=== PATIENT | female | born 1995 | race Caucasian/White ===

== ENCOUNTER → 2017-11-22 | Outpatient (CLI) | payer BC | LOC: MC.RAD 12:50 | DX: R59.9 Enlarged lymph nodes, unspecified (principal); N63.10 Unspecified lump in the right breast, unspecified quadrant ==

== ENCOUNTER → 2021-03-18 | Outpatient (CLI) | payer BC | LOC: MC.RAD 07:55 | DX: N63.10 Unspecified lump in the right breast, unspecified quadrant (principal) ==

== ENCOUNTER → 2021-03-25 | Outpatient (CLI) | payer BC | LOC: MC.RAD 12:36 | DX: N63.10 Unspecified lump in the right breast, unspecified quadrant (principal) ==